=== PATIENT | female | born 1975 | race Hispanic/Latino ===

== ENCOUNTER 2019-04-26 09:09 | Outpatient (CLI) | payer OTHER ==
--- NOTE | 2019-04-26 10:04 | ULT ---
ULTRASOUND ABDOMEN: HISTORY: Right upper quadrant pain, abdominal mass FINDINGS: The liver, spleen, gallbladder, pancreas, kidneys and visualized portions of the aorta and IVC appear normal. The common duct measures 3 mm in diameter. No free fluid is seen. There is a cystic mass in the right adnexa near the right ovary measuring 10.6 x 8.2 x 10.8 cm. Flow is demonstrated to the right ovary. IMPRESSION: Large right adnexal cystic mass suspicious for neoplasm. Gynecologic consultation is tori mmended.
== END 2019-04-26 09:10 | disposition home or self-care (01) ==
LOC: SCSULT 09:09
DX: R19.01 Right upper quadrant abdominal swelling, mass and lump (principal); N83.8 Other noninflammatory disorders of ovary, fallopian tube and broad ligament
CPT/HCPCS: 76700